=== PATIENT | female | born 1940 | race Caucasian/White ===

== ENCOUNTER → 2024-03-26 09:24 | Outpatient (REF) | payer OTHER, BC, MEDICARE, SELFPAY | LOC: RCS 09:24 | PROVIDERS: ATTENDING PHYSICIAN Internal Medicine Cardiovascular Disease; FAMILY PHYSICIAN Student in an Organized Health Care Education/Training Program | DX: I35.0 Nonrheumatic aortic (valve) stenosis (principal) | CPT/HCPCS: 93306 ==

== ENCOUNTER → 2024-03-31 09:00 | Outpatient (REF) | payer OTHER, SELFPAY ==
[2024-03-31 14:01] LABS: % Basophils 0.9 % (0-2); % Eosinophils 2.9 % (0-6); % Immature Granulocytes 0.5 % (0-0.5); % Lymphocytes 29.4 % (20.5-51.1); % Monocytes 9.4 % (1.7-9.3); % Neutrophils 56.9 % (42.2-75.2); Absolute Basophils 0.1 10^3/uL (0-0.2); Absolute Eosinophils 0.2 10^3/uL (0-0.7); Absolute Lymphocytes 1.9 10^3/uL (1.2-3.4); Absolute Monocytes 0.6 10^3/uL (0.1-0.6); Absolute Neutrophils 3.7 10^3/uL (1.4-6.5); Hematocrit 30.2 % (37.0-47.0); Hemoglobin 9.7 g/dL (12.0-16.0); Mean Corp Hgb Conc. 32.1 g/dL (33.0-37.0); Mean Corpuscular Hgb 31.6 pg (27.0-31.0); Mean Corpuscular Volume 98.4 fL (81.0-99.0); Mean Platelet Volume 10.8 fL (7.4-10.4); Nucleated Red Blood Cells % 0 %; Platelet Count 258 10^3/uL (130-400); Red Blood Cell Count 3.07 10^6/uL (4.20-5.40); Red Cell Dist. Width 15.8 % (11.5-14.5); White Blood Cell Count 6.5 10^3/uL (4.8-10.8)
[2024-03-31 14:26] LABS: ALT (SGPT) 26 U/L (0-35); AST (SGOT) 30 U/L (14-36); Albumin 4.2 g/dl (3.5-5.0); Alkaline Phosphatase 81 U/L (38-126); Blood Urea Nitrogen 22 mg/dl (7-17); Calcium 9.5 mg/dl (8.4-10.2); Carbon Dioxide 22 mmol/L (22-30); Chloride 111 mmol/L (98-107); Glucose 128 mg/dl (70-99); Potassium 5.2 mmol/L (3.5-5.1); Sodium 146 mmol/L (135-145); Total Bilirubin 0.2 mg/dl (0.2-1.3); eGFR 36.87
== END ==
LOC: SDSPAT 09:00
PROVIDERS: ATTENDING PHYSICIAN Internal Medicine Cardiovascular Disease; FAMILY PHYSICIAN Student in an Organized Health Care Education/Training Program
DX: Z01.810 Encounter for preprocedural cardiovascular examination (principal)
CPT/HCPCS: 36415; 80053; 85025; 93005

== ENCOUNTER 2024-04-08 09:09 | Day surgery (SDC) | payer OTHER, MEDICARE, BC, SELFPAY ==
[2024-03-31 13:23] VITALS: BMI 24.9
[2024-04-08] VITALS (23 sets, daily range): BP systolic 106–151; BP diastolic 58–95
--- NOTE | 2024-04-08 09:50 | CONSULT.STRU ---
Consultation
-
Date/Time Consultation Requested: 04/08/2024
Date/Time Consultation Performed: 04/08/2024
Requesting Provider: Christiano Dunlap DO
Performing Provider: MIKAEL Hernández
Reason for Consultation: /TAVR
Patient History
Physicians
Family Physician: Mckenna Porter MD
Outpatient Four Slide Machine Operator: Micheal Mixon DO
Primary Four Slide Machine Operator: Micheal Mixon DO
History of Present Illness
Ms. Mota is a very pleasant 83 yof that presents with severe symptomatic aortic stenosis associated with GARAY. Her echocardiogram from 03/26/2024 is notable for EF 55-60%, AV P/M 92/52, JENNIFER 0.6, pk jose c: 4.90, no AI, MAC with mild to moderate MR MV
P/M 13/6, MVA 1.31, PAP 37. Discussed the pathophysiology and treatment options of including SAVR and TAVR. Explained the TAVR evaluation process comprising of staged CT scan, CT surgical consult, dental clearance and a heart team discussion.
Appointments, prescriptions, contact information and TAVR booklet given to patient. Allowed for and answered questions at bedside.
Past Medical History
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
Past Surgical History
Past Surgical History: Orthopedic ((L) ankle surgery) and Other (cataract removal, (R) breast lumpectomy)
Dental History
Targen--Pt will need to make an appointment
Family History
Mother: Cause of (97)
Father: N/A
Social History
Alcohol: None
Drug: None
Tobacco: Non-Smoker
Living: Alone
Employment: Retired
Allergies
Allergy/AdvReac Type Severity Reaction Status Date / Time
cephalexin monohydrate Allergy Severe Hives Verified 04/08/24 09:48
[From Keflex]
clindamycin Allergy Severe Hives Verified 04/08/24 09:49
levofloxacin [From Levaquin] Allergy Severe Hives Verified 04/08/24 09:48
sulfamethoxazole Allergy Severe Hives Verified 04/08/24 09:50
[From Bactrim]
trimethoprim [From Bactrim] Allergy Severe Hives Verified 04/08/24 09:50
Home Medications
�Medication �Instructions �Recorded �Confirmed �Type
atorvastatin 80 mg tablet 80 mg PO DAILY 03/30/24 04/08/24 History
biotin 1,000 mcg chewable tablet 1,000 mcg PO DAILY 03/30/24 04/08/24 History
cholecalciferol (vitamin D3) 125 125 mcg PO DAILY 03/30/24 04/08/24 History
mcg (5,000 unit) tablet (Vitamin
D3)
venlafaxine 75 mg tablet 75 mg PO DAILY 03/30/24 04/08/24 History
aspirin 81 mg tablet 81 mg PO DAILY 04/08/24 04/08/24 History
esomeprazole magnesium 20 mg 20 mg PO DAILY 04/08/24 04/08/24 History
tablet,delayed release (Nexium
24HR)
STS%
STS %: 6.22
Review of Systems
-
History Source: Patient
General: Reports Fatigue
HEENT: Reports No Symptoms
Respiratory: Reports GARAY
Cardiac: Reports No Symptoms
Abdomen/GI: Reports No Symptoms
: Reports No Symptoms
Musculoskeletal: Reports No Symptoms
Skin: Reports No Symptoms
Neurological: Reports No Symptoms
Vascular: Reports No Symptoms
Physical Exam
Vital Signs
Actual Weight 59.7 kg 03/31/24 13:23
Body Mass Index (BMI) 24.9 03/31/24 13:23
Labs
03/31/2024:
HH: 9.7/30.2
plt: 258K
BUN/Creatinine: 22/1.4
GFR 36.87
Diagnostic Studies
ECHOCARDIOGRAM 03/26/2024:
CONCLUSIONS
Normal BiV size and function.
Severe, high gradient aortic stenosis with possible LCC/NCC fusion.
Thickened mitral valve leaflets with mild-moderate MR and mild-moderate MS.
Mild TR; PASP 37 mmHg.
Normal aortic root size.
No prior study available for comparison.
Aortic Valve
Calcified aortic valve. Possible LCC/NCC fusion. Thickened aortic valve with
restricted leaflet motion. Severe aortic stenosis. Peak/mean gradients across
the aortic valve are 92/52 mmHg. JENNIFER 0.6. No aortic regurgitation.
CARDIAC CATHETERIZATION 04/08/2024:
CONCLUSIONS:
1. Right dominant circulation with a borderline 50-60% proximal RCA lesion (IFR = 0.90).
2. Severely elevated filling pressures (PCWP = 27 mmHg at 59.4 kg).
3. Preserved systolic function (cardiac index = 2.78 L/min/m�).
4. Mild postcapillary pulmonary hypertension (mean PA = 27 mmHg, cardiac output = 4.39 L/min, PVR = 2.73 Ac units).
5. Severe/critical aortic valve stenosis on echocardiography.
6. Severe, calcified right common femoral atherosclerosis with significant stenosis.
RECOMMENDATIONS:
1. Expectant management after cardiac catheterization via right common femoral approach.
2. Limited weight bearing for one week.
3. Continue TAVR workup.
4. Given the patient's light symptom burden, we will defer any medication adjustment that may impact her kidney function given her upcoming CT scan.
5. We can readdress diuretic dosing after her aortic valve has been addressed.
6. Continue high-dose, high potency statin for ASCVD.
7. Stable for outpatient follow-up.
Procedure Type:�Isolated AVR
Perioperative Outcome Estimate %
Operative Mortality 6.22%
Morbidity & Mortality 13.1%
Stroke 2.62%
Renal Failure 2.31%
Reoperation 3.45%
Prolonged Ventilation 7.43%
Deep Sternal Wound Infection 0.036%
Long Hospital Stay (>14 days) 8.7%
Short Hospital Stay (<6 days)* 27.3%
Exam
General: Well Developed, Well Nourished and No Apparent Distress
HEENT: Normocephalic and Moist Mucous Membranes
Respiratory: Clear (anteriorly)
Cardiac: Murmur (V/Vi DYLLAN)
GI: Soft and Non Tender
Rectal: Deferred by Provider
Skin: Warm and Dry
Neuro: Awake, Oriented and AO x 3
Psych: Calm
Assessment / Plan
-
Aortic Stenosis
Continue TAVR evaluation
Trend creatinine after contrast (Rx given)
Stage CT scan d/t CKD IV (chest CT 04/22 w/ OID)
CT surgical consult (MPT 04/14)
Frailty testing and KCCQ12 at consult
Continue aspirin
Dental clearance
Heart team discussion
Data Reviewed
-
EKG: Tracing Personally Visualized and interpreted (NSR)
Invoice Checker: Report Reviewed by me and Discussed with Physician
Echo: Report Reviewed by me and Discussed with Physician
Labs: Labs Reviewed by me
Old Records: Reviewed (Office notes from Drs. Dunlap and Oral)
Total Time Spent with Patient (in minutes): 45
[2024-04-08 13:38] LABS: ACT-LR - POC 345 Seconds (116-155)
--- NOTE | 2024-04-08 14:16 | ITS.CL.CATH ---
[facility] - Catheterization
Cardiac Catheterization
Procedure Report:
CARDIAC CATHETERIZATION REPORT
Date of Procedure: 04/08/2024
Referring: Micheal Mixon D.O.
Indication: Critical aortic valve stenosis.
PROCEDURE:
1. Right heart catheterization.
2. Coronary angiography.
3. Iliofemoral peripheral angiography.
4. IFR of the proximal RCA.
ACCESS:
6 Lebanese right common femoral artery using a modified Seldinger technique with a micropuncture kit under ultrasound guidance.
5 Lebanese right common femoral vein using a modified Seldinger technique with a micropuncture kit under ultrasound guidance.
CATHETERS:
1. 5 Lebanese balloon wedge.
2. 5 Lebanese JL 4.
3. 5 Lebanese JR4.
4. 5 Lebanese straight pigtail.
5. 6 Lebanese JR4 guiding catheter.
HEMODYNAMIC DATA
Weight (kg): 59.4
AO (s/d/x mmHg): 156/83/116
LV (s/x mmHg): Not obtained.
PCWP (a/v/x mmHg): 36/43/27
PA (s/d/x mmHg): 57/30/39
RV (s/x mmHg): 57/15
RA (a/v/x mmHg): 23/21/19
SVC SvO2 (%): 67.1
PA SvO2 (%): 68.2
SaO2 (%): 98.6
Hbg (g/dL): 8.3
CO (L/min): 4.39
CI (L/min/m2): 2.78
TPG (mmHg): 12
PVR (Ca Units): 2.73
SVR (dynes*seconds*cm^-5): 1768
AVO2 Diff (Volume %): 3.43
AV gradient (x, mmHg): Not obtained.
AV area (cm2): Not obtained.
LEFT VENTRICULOGRAPHY: Not performed.
CORONARY ANGIOGRAPHY
Dominance: Right.
Left Main: Normal size, trifurcating vessel. There is no coronary artery disease.
LAD: Normal size vessel giving rise to 2 small diagonals. There is a dense, external calcification in the proximal LAD. There is a 20% lesion in the mid LAD, spanning the origin of the second diagonal.
Ramus: Normal size vessel which bifurcates into an upper and lower branch, supplying the majority of the anterolateral and lateral wall. There is no coronary artery disease.
Circumflex: Small size, nondominant vessel giving rise to 1 small obtuse marginal. There is no significant coronary artery disease.
RCA: Large size, dominant vessel. There is a 50-60% lesion in the proximal vessel.
LOWER EXTREMITY ANGIOGRAPHY
Left Common Iliac Artery: Normal.
Left External Iliac Artery: Normal.
Left Common Femoral Artery: Normal.
Left Superficial Femoral Artery: Normal to the level of the upper femur.
Left Profunda Femoris: Normal to the level of the upper femur.
Right Common Iliac Artery: Normal.
Right External Iliac Artery: Normal.
Right Common Femoral Artery: Severely diseased with multiple calcified nodules in the mid and distal common femoral artery, leading into the bifurcation.
Right Superficial Femoral Artery: Normal to the level of the upper femur.
Right Profunda Femoris: Normal to the level of the upper femur.
INTERVENTIONS
1. Successful IFR of the 50 to 60% proximal RCA lesion, demonstrating borderline disease (IFR = 0.90).
Narrative:
The decision was made to perform physiologic testing. The diagnostic catheter was removed over a wire and exchanged for a(n) 6 Lebanese JR4 guiding catheter. The guiding catheter was advanced into the ascending aorta and seated in the right coronary
artery. Additional heparin was given to obtain an ACT greater than 250 seconds. An iFR wire was zeroed outside of the body, then inserted into the guiding sheath. The wire was advanced and the transducer was normalized just outside of the guiding
catheter tip. The wire was advanced into the mid RCA, beyond the 50-60% proximal RCA lesion. Three iFR measurements were taken. The lesion was determined to be borderline occlusive (0.90). Given her relatively light symptom burden combined with
anemia, the decision was made to defer any further action (such as FFR) and manage her coronary artery disease medically.
Closure Device: Manual pressure for the right common femoral artery and vein.
Radiation dose (mGy): 515.12
DAP (cm2.Gy): 40.8025
Fluoroscopy time (minutes): 7.2
Sedation time (minutes): 21
CONCLUSIONS:
1. Right dominant circulation with a borderline 50-60% proximal RCA lesion (IFR = 0.90).
2. Severely elevated filling pressures (PCWP = 27 mmHg at 59.4 kg).
3. Preserved systolic function (cardiac index = 2.78 L/min/m�).
4. Mild postcapillary pulmonary hypertension (mean PA = 27 mmHg, cardiac output = 4.39 L/min, PVR = 2.73 Ac units).
5. Severe/critical aortic valve stenosis on echocardiography.
6. Severe, calcified right common femoral atherosclerosis with significant stenosis.
RECOMMENDATIONS:
1. Expectant management after cardiac catheterization via right common femoral approach.
2. Limited weight bearing for one week.
3. Continue TAVR workup.
4. Given the patient's light symptom burden, we will defer any medication adjustment that may impact her kidney function given her upcoming CT scan.
5. We can readdress diuretic dosing after her aortic valve has been addressed.
6. Continue high-dose, high potency statin for ASCVD.
7. Stable for outpatient follow-up.
Copy to: Micheal Mixon D.O., Mckenna Porter M.D.
Christiano Dunlap DO, FACC, FACP
[2024-04-08 15:00] LABS: ACT-LR - POC 200 Seconds (116-155)
[2024-04-08 15:39] LABS: ACT-LR - POC 189 Seconds (116-155)
--- NOTE | 2024-04-08 18:07 | PTCARENOTE ---
Rec'd pt from [facility]. Tele- SR. R groin w/ old bloody drg on site. No hematoma noted. Activity restrictions reviewed w/ pt. Verbalizes understanding. VSS. Currently in bed; call lam w/in reach.
[2024-04-08 22:36] LABS: Glucose - Point of Care 80 mg/dl (70-99)
--- NOTE | 2024-04-09 01:50 | PTCARENOTE ---
Assumed care of the patient @ 1900 SR on monitor rt groin cath site dressing changed . clean dry and intact no hematoma. VSS . Denies pain. 1 person assist to bedside commode. Call fritz within reach hourly rounding done.
[2024-04-09 04:07] VITALS: BP 129/69
[2024-04-09 05:13] LABS: Blood Urea Nitrogen 27 mg/dl (7-17); Carbon Dioxide 22 mmol/L (22-30); Chloride 112 mmol/L (98-107); Estimated Creatinine Clearance 24 ml/min; Glucose 88 mg/dl (70-99); Potassium 4.7 mmol/L (3.5-5.1); Sodium 144 mmol/L (135-145)
[2024-04-09 06:21] LABS: Hematocrit 27.7 % (37.0-47.0); Hemoglobin 8.8 g/dL (12.0-16.0); Mean Corp Hgb Conc. 31.8 g/dL (33.0-37.0); Mean Corpuscular Hgb 31.1 pg (27.0-31.0); Mean Corpuscular Volume 97.9 fL (81.0-99.0); Mean Platelet Volume 10.9 fL (7.4-10.4); Platelet Count 234 10^3/uL (130-400); Red Blood Cell Count 2.83 10^6/uL (4.20-5.40); Red Cell Dist. Width 16.7 % (11.5-14.5); White Blood Cell Count 8.2 10^3/uL (4.8-10.8)
[2024-04-09 07:16] VITALS: BP 116/84
[2024-04-09] MEDS: PROTONIX 40 MG PO (07:32)
[2024-04-09] MEDS: LIPITOR 80 MG PO (07:32)
[2024-04-09] MEDS: EFFEXOR 75 MG PO (07:32)
[2024-04-09] MEDS: FEOSOL 325 MG PO (07:32)
[2024-04-09] MEDS: ASPIR LOW (ENTERIC COATED) 81 MG PO (07:32)
[2024-04-09 07:38] LABS: Glucose - Point of Care 113 mg/dl (70-99)
[2024-04-09 08:38] LABS: Glycohemoglobin (HgbA1c) 6.3 % (4.0-5.6)
--- NOTE | 2024-04-09 08:38 | W.PN.CARDCBS ---
Addendum entered and electronically signed by Christiano Dunlap DO 04/09/24 11:45:
Attestation: I have seen and examined the patient. I can confirm Ms. Vo's findings and I agree with her assessment and plan as documented.
No acute events.
The patient was hospitalized overnight after a late groin sheath pull after an elective cardiac catheterization for TAVR evaluation.
The patient did suffer some oozing after the groin pull, requiring an overnight observation.
No further blood loss overnight.
She has no subjective cardiovascular complaints this morning.
On exam, she is alert awake and oriented x 3.
Heart is regular rhythm with a normal rate. There is a 3/6 systolic ejection murmur heard best at the left upper sternal border.
Lungs are clear to auscultation bilaterally.
There is trace peripheral edema.
We will continue TAVR workup including CT chest and appointment with CT surgery.
We are deferring diuresis at this time to avoid any renal insult prior to her CT scan.
She is stable for outpatient follow-up.
Original Note:
Today's Communication / Plan
-
stable for d/c home
continue outpt TAVR w/u
Impression / Plan
-
PCP: Dr. Porter
CDY: Micheal Mixon DO
Impression/Plan:
#Severe - post cath yesterday with mild CAD IFR borderline RCA stenosis, med management
R fem site c/d/i, soft, mildly tender, Hbg 9.7->8.8
Elevated filling pressures PCWP 27mmHg, but with given the patient's light symptom burden, we will defer any medication adjustment that may impact her kidney function given her upcoming CT scan.
We can readdress diuretic dosing after her aortic valve has been addressed.
continue TAVR w/u outpt
#CAD - continue ASA 81mg and Atorvastatin 80mg
#CKD3b - Cr 1.3 post cath, will trend
#HTN
#HLD
#TIA
#DM2
#h/o GIB on ferrous sulfate
#Macular degeneration
CONCLUSIONS:
1. Right dominant circulation with a borderline 50-60% proximal RCA lesion (IFR = 0.90).
2. Severely elevated filling pressures (PCWP = 27 mmHg at 59.4 kg).
3. Preserved systolic function (cardiac index = 2.78 L/min/m�).
4. Mild postcapillary pulmonary hypertension (mean PA = 27 mmHg, cardiac output = 4.39 L/min, PVR = 2.73 Ac units).
5. Severe/critical aortic valve stenosis on echocardiography.
6. Severe, calcified right common femoral atherosclerosis with significant stenosis.
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
Subjective
Date of Service: April 09, 2024
denies cp, sob
Objective
Labs:
04/09/24 04:15
04/09/24 04:15
Labs
Hgb 8.8 g/dL (12.0-16.0) L 04/09/24 04:15
Hct 27.7 % (37.0-47.0) L 04/09/24 04:15
Plt Count 234 10^3/uL (130-400) 04/09/24 04:15
Sodium 144 mmol/L (135-145) 04/09/24 04:15
Potassium 4.7 mmol/L (3.5-5.1) 04/09/24 04:15
BUN 27 mg/dl (7-17) H 04/09/24 04:15
Creatinine 1.3 mg/dL (0.6-1.0) H 04/09/24 04:15
Glucose 88 mg/dl (70-99) 04/09/24 04:15
Vital Signs and I&O:
Vital Signs
Temp Pulse Resp BP Pulse Ox
97.9 F 76 18 129/69 93
04/09/24 07:14 04/09/24 04:07 04/09/24 07:14 04/09/24 04:07 04/09/24 07:14
Vital Signs
Temp Pulse Resp BP Pulse Ox
97.9 F 76 18 129/69 93
04/09/24 07:14 04/09/24 04:07 04/09/24 07:14 04/09/24 04:07 04/09/24 07:14
Intake & Output
04/07/24 04/08/24 04/09/24 04/10/24
06:59 06:59 06:59 06:59
Output Total 800 / 800
Balance -800 / -800
Physical Exam
Physical Exam
NAD< AOx3
S1, S2, / DYLLAN
CTAB, non labored
SNTND bsx4
R fem site c/d/i soft, mildly tender
[2024-04-09 09:02] VITALS: BMI 25.0
[2024-04-09 11:24] VITALS: BP 132/71
[2024-04-09 11:58] LABS: Glucose - Point of Care 131 mg/dl (70-99)
--- NOTE | 2024-04-09 13:06 | PTCARENOTE ---
Tele and IV removed. Discharge instructions reviewed w/ pt. Verbalizes understanding. Escorted via WC and staff assist. Discharged to home.
--- NOTE | 2024-04-09 14:32 | CM ---
CM following for DC planning needs.
Met w patient at bedside to complete initial assessment.
Pt. resides alone in a private, split level home. There are approx. 6 steps between levels.
Pt. is functionally indep. at baseline w/ ADLs and mobility. She has a SPC, which she does not use.
Pt. has RX plan and uses [facility] in [facility] for prescription needs.
Anticipated DC plan is for home without needs.
Pt. plans to return in several weeks for TAVR procedure.
--- NOTE | 2024-04-09 14:50 | W.DS.TRANS ---
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
-
Discharge Instructions:
Discharge Diagnosis/Procedures Cardiac cath
Diet Low Cholesterol
Driving Restrictions No driving for 24 hours
Blood Work PLEASE GET YOUR LAB WORK NEXT WEEK (Saturday
OR MONDAY 04/16) PLEASE FAX RESULTS TO [phone]
[phone] [facility].
Others Tests THE FIRST PORTION OF YOUR CT SCAN IS SCHEDULED
FOR 04/22/2024 @ 9:30. YOU WILL GO THE
OUTPATIENT INFUSION DEPARTMENT AT 8:30 FOR IV
HYDRATION BEFORE AND AFTER YOUR CT SCAN. SEE
ATTACHED INSTRUCTIONS.
NOTHING TO EAT OR DRINK 3 HOURS BEFORE YOUR
SCHEDULED CT SCAN. PLEASE BRING A LIST OF YOUR
MEDICATIONS. YOU MAY TAKE YOUR MORNING
MEDICATIONS WITH SIPS OF WATER BEFORE COMING IN.
YOU WILL NEED DENTAL CLEARANCE PRIOR TO YOUR
VALVE REPLACEMENT
Instructions:
Stand-Alone Forms: DC Instructions- Cath/EP Lab
Changes to Home Medications: No
Discharge Medications:
DC Medications w/original date entered in [employer] [facility]
atorvastatin 80 mg tablet 80 mg PO DAILY 03/30/24
biotin 1,000 mcg chewable tablet 1,000 mcg PO DAILY 03/30/24
cholecalciferol (vitamin D3) 125 mcg (5,000 unit) tablet (Vitamin D3) 125 mcg PO DAILY 03/30/24
venlafaxine 75 mg tablet 75 mg PO DAILY 03/30/24
ascorbic acid (vitamin C) 500 mg capsule,extended release 500 mg PO DAILY 04/08/24
aspirin 81 mg tablet 81 mg PO DAILY 04/08/24
esomeprazole magnesium 20 mg tablet,delayed release (Nexium 24HR) 20 mg PO DAILY 04/08/24
ferrous sulfate 325 mg (65 mg iron) tablet (Iron (ferrous sulfate)) 325 mg PO DAILY 04/08/24
potassium 99 mg tablet 99 mg PO DAILY 04/08/24
vit C 250 mg-vit E 90 mg-zinc 40 mg-copper 1 [id number] capsule (PreserVision AREDS-2) 2 tab PO DAILY 04/08/24
Home Medication Changes
Pending Results: No
== END 2024-04-09 13:07 | disposition home or self-care (01) ==
LOC: CATH 09:09
PROVIDERS: Nurse Practitioner Adult Health; ATTENDING PHYSICIAN Internal Medicine Cardiovascular Disease; FAMILY PHYSICIAN Nurse Practitioner Family
DX: I35.0 Nonrheumatic aortic (valve) stenosis (principal); I25.10 Atherosclerotic heart disease of native coronary artery without angina pectoris; I12.9 Hypertensive chronic kidney disease with stage 1 through stage 4 chronic kidney disease, or unspecified chronic kidney disease; K21.9 Gastro-esophageal reflux disease without esophagitis; D64.9 Anemia, unspecified; F41.9 Anxiety disorder, unspecified; F32.A Depression, unspecified; E11.22 Type 2 diabetes mellitus with diabetic chronic kidney disease; N18.9 Chronic kidney disease, unspecified; H35.30 Unspecified macular degeneration; M19.90 Unspecified osteoarthritis, unspecified site; Z86.73 Personal history of transient ischemic attack (TIA), and cerebral infarction without residual deficits; Z79.899 Other long term (current) drug therapy; Z79.82 Long term (current) use of aspirin; Z79.84 Long term (current) use of oral hypoglycemic drugs; I27.29 Other secondary pulmonary hypertension; I70.201 Unspecified atherosclerosis of native arteries of extremities, right leg; E78.49 Other hyperlipidemia; Z88.1 Allergy status to other antibiotic agents; Z88.2 Allergy status to sulfonamides; N18.4 Chronic kidney disease, stage 4 (severe); Z90.49 Acquired absence of other specified parts of digestive tract
CPT/HCPCS: 93799; G0278; 80048; 82962; 83036; 85027; 85347; 93456; C1769; C1894; Q9967

== ENCOUNTER 2024-04-22 07:40 | Outpatient (RCR) | payer OTHER, SELFPAY ==
[2024-04-22 07:54] VITALS: BP 106/77
[2024-04-22] MEDS: NSS 500 IV (08:10)
== END 2024-05-05 23:59 | disposition home or self-care (01) ==
LOC: OID 07:40
PROVIDERS: ATTENDING PHYSICIAN Nurse Practitioner Acute Care
DX: I35.0 Nonrheumatic aortic (valve) stenosis (principal); N18.4 Chronic kidney disease, stage 4 (severe)
CPT/HCPCS: 96360; 96361

== ENCOUNTER → 2024-04-22 08:28 | Outpatient (REF) | payer OTHER, SELFPAY | LOC: RAD 08:28 | PROVIDERS: ATTENDING PHYSICIAN Nurse Practitioner Acute Care; FAMILY PHYSICIAN Student in an Organized Health Care Education/Training Program | DX: I35.0 Nonrheumatic aortic (valve) stenosis (principal) | CPT/HCPCS: 75572; Q9967 ==

== ENCOUNTER → 2024-06-05 14:56 | Outpatient (REF) | payer OTHER, SELFPAY | LOC: RAD 14:56 | PROVIDERS: ATTENDING PHYSICIAN Nurse Practitioner Adult Health | DX: Z87.19 Personal history of other diseases of the digestive system (principal); I35.0 Nonrheumatic aortic (valve) stenosis; K92.2 Gastrointestinal hemorrhage, unspecified | CPT/HCPCS: 74176 ==

== ENCOUNTER 2024-07-02 07:47 | Inpatient (IN) | payer OTHER, BC, SELFPAY ==
[2024-06-25 12:11] VITALS: BMI 23.9
[2024-06-25 13:12] LABS: % Basophils 0.8 % (0-2); % Eosinophils 3.4 % (0-6); % Immature Granulocytes 0.2 % (0-0.5); % Monocytes 9.2 % (1.7-9.3); % Neutrophils 62.4 % (42.2-75.2); Absolute Eosinophils 0.2 10^3/uL (0-0.7); Absolute Lymphocytes 1.3 10^3/uL (1.2-3.4); Absolute Monocytes 0.5 10^3/uL (0.1-0.6); Absolute Neutrophils 3.3 10^3/uL (1.4-6.5); Hematocrit 34.5 % (37.0-47.0); Hemoglobin 10.6 g/dL (12.0-16.0); Mean Corp Hgb Conc. 30.7 g/dL (33.0-37.0); Mean Corpuscular Volume 97.7 fL (81.0-99.0); Mean Platelet Volume 10.8 fL (7.4-10.4); Nucleated Red Blood Cells % 0 %; Platelet Count 200 10^3/uL (130-400); Red Blood Cell Count 3.53 10^6/uL (4.20-5.40); Red Cell Dist. Width 17.8 % (11.5-14.5); White Blood Cell Count 5.3 10^3/uL (4.8-10.8)
[2024-06-25 13:13] LABS: Urine Albumin 2+ (Neg - Trace); Urine Bilirubin Negative (Negative); Urine Character Slightly Cloudy (Clear); Urine Color Yellow; Urine Glucose Negative (Negative); Urine Ketone Negative (Negative); Urine Leukocyte 3+ (Negative); Urine Nitrite Negative (Negative); Urine Occult Blood 1+ (Negative); Urine Urobilinogen Negative (Neg - 1+)
[2024-06-25 13:21] LABS: Urine Bacteria Few (Negative); Urine Squamous Cell >30 /LPF (Few)
[2024-06-25 13:22] LABS: Urine Red Blood Cell 0-2 /HPF (0-2)
[2024-06-25 13:24] LABS: INR 1.08; PT 14.5 Sec (11.4-14.6)
[2024-06-25 13:28] LABS: ALT (SGPT) 23 U/L (0-35); AST (SGOT) 28 U/L (14-36); Albumin 4.2 g/dl (3.5-5.0); Alkaline Phosphatase 82 U/L (38-126); Blood Urea Nitrogen 21 mg/dl (7-17); Calcium 9.4 mg/dl (8.4-10.2); Carbon Dioxide 25 mmol/L (22-30); Chloride 109 mmol/L (98-107); Direct Bilirubin 0.2 mg/dl (0.0-0.4); Estimated Creatinine Clearance 22 ml/min; Glucose 132 mg/dl (70-99); Potassium 4.6 mmol/L (3.5-5.1); Sodium 145 mmol/L (135-145); Total Bilirubin 0.5 mg/dl (0.2-1.3); Total Protein 7.2 g/dl (6.3-8.2); eGFR 36.87
[2024-06-25 13:35] LABS: NT-proBNP 1150 pg/ml
--- NOTE | 2024-06-25 14:13 | CM ---
Met with Mrs. Mota and her daughter in [facility]. She states prior to admission she resides alone in a spilt-level home with six steps to enter. She states she has seven steps to get to bedroom/full bathroom and seven steps to get to her powder room.
She states prior to admission she was independent with ambulation and adls. She states she does not have any DME in the home. She states she has a prescription plan. Her daughter has offered for her to stay with her for a few days when she goes
home. Mrs. Mota is not sure she will want to do that. The discharge plan is to go home with her daughter for a few days and a home visit with the Transitional Care Nurse versus return to her home and a home visit by the Transitional Care Nurse
when medically stable.
We reviewed pre-op and post-op routines. We reviewed the shower instructions. Shehas the soap, written instructions and the TAVR Educational Booklet. We reviewed restrictions including driving and lifting restrictions. We discussed a home visit by
the Transitional Care Nurse. She is agreeable to a home visit. The plan is for TAVR on 07/02/24.
--- NOTE | 2024-06-25 14:27 | HPS.HSE ---
Family Physician
-
Family Physician: ALEXANDRA BORGES, DO
Chief Complaint
-
GARAY, fatigue
preTAVR evaluation
History of Present Illness
Ms. Mota is a very pleasant 83 yof that presents with severe symptomatic aortic stenosis associated with GARAY. Her echocardiogram from 03/26/2024 is notable for EF 55-60%, AV P/M 92/52, JENNIFER 0.6, pk jose c: 4.90, no AI, MAC with mild to moderate MR MV
P/M 13/6, MVA 1.31, PAP 37. Cardiac catheterization from demonstrated right dominant circulation with a borderline 50-60% proximal RCA lesion (IFR = 0.90),.severely elevated filling pressures (PCWP = 27 mmHg at 59.4 kg), preserved
systolic function (cardiac index = 2.78 L/min/m�). mild postcapillary pulmonary hypertension (mean PA = 27 mmHg, cardiac output = 4.39 L/min, PVR = 2.73 Ac units), severe, calcified right common femoral atherosclerosis with significant stenosis.
Discussed the pathophysiology and treatment options of including SAVR and TAVR. Patient's TAVR evaluation was delayed due to a recent hospitalization for a GIB. She has been evaluated and cleared for TAVR from GI and Hgb has remained stable.
Assessed patient in preadmission testing and confirmed medication list. Added 81 mg aspirin PO daily including the morning of TAVR. She will arrive to the [facility] at 0730 on 07/02. Discussed the risks of the procedure as discussed in consult
with Dr. Stallworth including ppm, stroke, and vascular injury. Patient states she has had a head cold for several days with a NPC, she denies fever. Informed patient we would call her on Thursday 06/29 to see how she is feeling and instructed if she feels
worse or develops fever, she should contact PCP or go to the ED. Allowed for and answered questions.
Medical History
Past Medical History
Past Medical History: Reports CAD, HTN, NIDDM, Valvular Disease (Aortic stenosis), Psychiatric (depression, anxiety) and Other (hypoercalcemia, diverticulosis, hiatal hernia, TIA, macular degeneration, HLD, anemia, CKD 3-4, GIB)
Past Surgical History: Reports Cholecystectomy, Orthopedic (ankle ORIF, left wrist fx) and Other (cataract removal, (R) breast lumpectomy, diverticular bleed s/p resection)
Social History
Tobacco: Non-smoker
Alcohol: None
Drug: None
Personal: ()
Employment: Retired
Family History
Family History: Not pertinent
Allergies / Home Medications
Allergies reflects when Allergies were last updated in [employer].
Keflex: hives
Levaquin: hives
Clindamycin HCl: hives
Bactrim: hives
Ciprofloxacin: hives
gerstein: ?
Home Medications with original date entered in [employer]
Aspirin Adult Low Dose(Aspirin) 81 MG Tablet Delayed Release 1 tablet Orally Once a day
Atorvastatin Calcium 80 MG Tablet 1 tablet Orally Once a day
Biotin 1000 MCG Tablet Chewable as directed Orally
Ferrous Sulfate 325 (65 Fe) MG Tablet 1 tablet Orally daily
NexIUM 24HR(Esomeprazole Magnesium) 20 MG Capsule Delayed Release 1 capsule 1/2 to 1 hour before morning meal Orally Once a day , Notes to Pharmacist: esomeprazole mag
Potassium 99 MG Tablet 1 tablet Orally Once a day
PreserVision AREDS 2(Multiple Vitamins-Minerals) - Capsule as directed Orally , Notes to Pharmacist: 2 tabs daily
Venlafaxine HCl 75 MG Tablet 1 tablet with food Orally Once a day
Vitamin C 500 MG Capsule as directed Orally
Vitamin D3 125 MCG (5000 UT) Capsule as directed Orally
Allergy/Medication List:
Keflex: hives
Levaquin: hives
Clindamycin HCl: hives
Bactrim: hives
Ciprofloxacin: hives
gerstein: ?
Review of Systems
-
History Source: Patient
Constitutional: Reports Fatigue
EENT: Reports No Symptoms
Respiratory: Reports Cough (NPC)
Cardiac: Reports No Symptoms
Abdomen/GI: Reports No Symptoms
: Reports No Symptoms
Musculoskeletal: Reports No Symptoms
Skin: Reports No Symptoms
Neurological: Reports No Symptoms
Psych: Reports No Symptoms
Physical Exam
Physical Exam
General: Well Developed and Well Nourished
HEENT: Atraumatic
Respiratory: Clear
Cardiac: Irregular Rhythm and Murmur (IV/)
Breast: Deferred by me
GI: Soft and Non Tender
Rectal: Deferred by Provider
Genito-urinary: Deferred by me
Skin: Warm and Dry
Neuro: Awake, Alert, Oriented and AO x 3
Psych: Calm
Laboratory Results
-
06/25/24 12:37
06/25/24 12:37
Laboratory Results
PT 14.5 Sec (11.4-14.6) 06/25/24 12:37
INR 1.08 06/25/24 12:37
APTT 26.0 Sec (23.4-35.0) 06/25/24 12:37
Total Bilirubin 0.5 mg/dl (0.2-1.3) 06/25/24 12:37
AST 28 U/L (14-36) 06/25/24 12:37
ALT 23 U/L (0-35) 06/25/24 12:37
Alkaline Phosphatase 82 U/L (38-126) 06/25/24 12:37
Data Reviewed
-
Diagnostic Radiology: Report Reviewed by me
CT Scan: Report Reviewed by me and Discussed with Physician (Reviewed TAVR CT scan with the heart team)
Medical Tests (Nuc Med, Echo, EKG etc): Report Reviewed by me and Discussed with Physician (echocardiogram and cardiac catheterization reviewed with the heart team)
Lab Data: Labs Reviewed by me
Old Records: Reviewed (Dr. Stallworth's office note)
Impression/Plan
-
IMPRESSION/PLAN:
Aortic Stenosis
TF TAVR planned utilizing a 26mm Fx+ with Drs. Dunlap and Karyn
81 mg aspirin restarted and instructed to continue including morning of TAVR
POD #1/#30 Echocardiogram
Cardiac rehab consult.
[2024-06-25 15:17] LABS: Glycohemoglobin (HgbA1c) 6.1 % (4.0-5.6)
[2024-07-02] VITALS (17 sets, daily range): BP systolic 91–148; BP diastolic 39–86; BMI 24.0
[2024-07-02 08:08] LABS: Glucose - Point of Care 96 mg/dl (70-99)
--- NOTE | 2024-07-02 08:30 | CM ---
Reviewed chart. Mrs. Mota is in the operating room today. Prior to admission she resides alone in [place]ilt level home with six steps to enter. She has seven steps to get to ner bedroom/full bathroom and seven steps down to get to her powder room.
Prior to admission she was independent with ambulation and adls. She does not have any DME in the home. She has a prescription plan. Her daughter has offered for her to stay with her a few days when she goes home. She is not sure she wants to do
that. Medical work-up in progress. The discharge plan is to go to her daughter's home with a home visit by the Transitional Care Nurse verses going back to her own home with a home visit by the Transitional Care Nurse when medically stable.
--- NOTE | 2024-07-02 08:42 | W.CVOR.SURPR ---
CVOR Surgeon Immed Pre Op
-
I have examined this patient prior to performance of the scheduled procedure.
The patient's condition is unchanged from the time of the dictated/written History and
Physical and the patient is able to undergo the scheduled procedure.
R TF TAVR
Full Rescue
[2024-07-02] MEDS: VANCOCIN 200 IV ×2 (08:45→19:34)
[2024-07-02] MEDS: AZACTAM 2000 MG IV (09:17)
[2024-07-02 10:26] LABS: ACT-LR - POC 203 Seconds (116-155)
[2024-07-02 10:38] LABS: ACT-LR - POC 294 Seconds (116-155)
--- NOTE | 2024-07-02 10:58 | ITS.CL.TAVR ---
Literary Writer - TAVR Report
TAVR PRocedure
Procedure Report:
TRANSCATHETER AORTIC VALVE REPLACEMENT REPORT
Date: 07/02/2024
Referring physician: Micheal Mixon D.O.
Preop diagnosis: Severe aortic valve stenosis.
Postop diagnosis: Severe aortic valve stenosis, acute on chronic heart failure with preserved ejection fraction.
Procedure: Aortic valve balloon valvuloplasty using a #18 True balloon, transcatheter aortic valve replacement (TAVR) using a #26 Medtronic CoreValve Evolut Pro FX, TAVR post dilation using a #20 true balloon.
Operators: Christiano Dunlap DO, Farhat Boss M.D.
Findings: Severely calcified and stenotic aortic valve.
Anesthesia: Conscious sedation was provided by the anesthesia staff.
Estimated blood loss: Negligable.
Complications: None.
Condition: Stable
Procedure:
The patient was brought to the cardiac catheter builder after consent and was prepped and draped in standard sterile fashion. Conscious sedation was provided by the anesthesia staff. After a 'Time Out,' bilateral common femoral arteries and the right
common vein were accessed using a modified Seldinger technique with a micropuncture kit under ultrasound guidance. A 6 Maldivian sheath was placed in the right femoral vein. Angiography performed through the micropuncture sheath confirmed
satisfactory arterial placement in the right and left common femoral arteries. The micropuncture sheath was replaced with a 6Fr sheath in the right common femoral artery. In the left common femoral artery, the micropuncture sheath was removed and
an 8 Maldivian dilator was advanced over the wire. The dilator was removed and the left common femoral artery was preclosed with 2 Perc-Close devices. An 8 Maldivian sheath was placed in the left common femoral artery. A temporary pacing wire was
advanced through the right femoral vein and into the right ventricle. The pacemaker demonstrated good capture and was set to back up. A 5Fr pigtail catheter was advanced through the right femoral sheath and seated in the non-coronary cusp. The
valve overlap (JC 20, CAU 20) and three cusp co-planar (MARTIN 25, CAU 12) angles were confirmed on aortography.
An AL-1 catheter was advanced through the 8Fr sheath, the J wire was exchanged for a Lunderquist wire and the catheter and the 8 Fr sheath was removed. A 16 Fr Cook sheath was placed. The CoreValve was prepared on the back table and then inspected
under fluoroscopy. Infolding of the valve was no higher than the 4th node. The AL-1 catheter was advanced over the Lunderquist wire, which was then removed. The catheter was flushed and a straight wire was advanced through the AL-1 catheter. The
straight wire was used to cross the valve, and the AL-1 catheter was prolapsed into the left ventricle. The straight wire was exchanged for an exchange length J-wire and the AL-1 catheter was subsequently exchanged for a 5 Fr angled pigtail
catheter. LVEDP was measured. The double curve Lunderquist wire was advanced through the pigtail catheter and placed in the apex of the left ventricle. The pigtail catheter was removed.
A 18 mm valvuloplasty balloon was advanced over through the Cook sheath and seated at the level of the aortic valve. The patient underwent valvuloplasty under rapid pacing. The valvuloplasty balloon was removed over the Lunderquist wire.
The Cook sheath was removed and the in-line sheath was advanced over the Lunderquist wire through the LCFA into the descending aorta. The Corevalve was then advanced over the aortic arch and into the left ventricle. In the cusp overlap view, the
valve was slowly deployed to the point of flowering. The patient was rapidly paced in a de-escalating rate (from 140 bpm to 80 bpm) as the valve was deployed through the rumble strips to 80%. Injection confirmed a non-coronary cusp implant depth
of 2 mm. The image intensifier was taken to the 3 cusp overlap view to remove paralax. Injection in this view confirmed left coronary cusp implant depth of -1 mm.
The decision was made to partially recapture and redeploy. The valve was recaptured under rapid pacing then slightly advanced and redeployed with a left coronary cusp implant depth of 1 mm. We returned to the cusp overlap position, finding that
there was significant parallax in this position. We removed the parallax from the cusp overlap position and repeated injection, confirming a noncoronary cusp depth of 3 mm.
The decision was made to proceed with full deployment. The delivery handle with slowly rotated counter clockwise until both paddles were released from the superior aspect of the valve. The Lunderquist wire was partially withdrawn to lift the
nosecone of the valve delivery device. The delivery device was withdrawn to the descending aorta and re-assembled. Transthoracic echocardiogram showed moderate paravalvular insufficiency. Mean gradient across the valve was 5 mmHg by echo. There
was some underexpansion of the inflow. Combined with the known calcium in the LVOT, the decision was made to perform post dilation. The inline sheath was removed and the 16 Maldivian Cook sheath was repositioned in the left common femoral artery. A
#20 true balloon was advanced over the Lunderquist wire and into the LVOT. The valve was postdilated and the balloon was withdrawn. Repeat echocardiogram showed modest improvement in the paravalvular leak, remaining moderate. There was concern
for mild disruption of the aorta mitral curtain. There was a small amount of Doppler activity in the area of the base of the mitral valve. The patient remained hemodynamically stable, so the decision was made to allow the valve to reach full
expansion and to avoid further instrumentation.
The Cook sheath was removed over the Lunderquist wire and hemostasis was achieved using the two Perc-Close devices. Lower extremity angiography showed excellent hemostasis and good runoff without evidence perforation or extravasation. The pigtail
catheter was removed over a J-wire and the right PLATFORM MATERIAL HANDLING SUPERVISOR was closed using manual pressure after administration of protamine. There was no evidence of consistent pacing requirement. The temporary pacer was removed. The venous sheath was removed.
Manual pressure was applied with good hemostasis of the right venous access. The patient was taken to recovery in good condition.
Implant Depth
Non-Coronary (mm): 3
Left Coronary (mm): 1
Radiation
Dose (mGy): 343.66
DAP (cm2.Gy): 32.0
Fluoroscopy time (minutes): 11.5
TAVR Echo Gradient (mmHg): 5
LV (s/x, mmHg): 208/30
TAVR Cath Gradient (mmHg): Not obtained.
Conclusions:
1. Successful placement of #26 CoreValve Evolute Pro using a left percutaneous transfemoral approach requiring post deployment BAV using a #20 true balloon with moderate paravalvular leak, possible mild aorto mitral curtain disruption due to LVOT
calcium displacement.
2. Acute on chronic heart failure with elevated filling pressures (LVEDP = 30 mmHg at 57.6 kg).
Christiano Dunlap, DO, FACC, FACP
Copy: Micheal Mixon D.O., Ashley Puga D.O.
--- NOTE | 2024-07-02 11:06 | W.PN.CT.SURG ---
CT Surgery Operative Note
-
OPERATIVE REPORT
Preoperative Diagnosis: Severe aortic valve stenosis, symptomatic
Postoperative Diagnosis: Same
Procedure(s) Performed: Left trans femoral TAVR with a 26mm Medtronic Evolut FX device with pre-BAV (18mm) and post BAV (20mm)
Date of Procedure: 07/02/2024
Comorbidities:
1. Severe symptomatic aortic stenosis
2. Acute on chronic systolic and diastolic congestive heart failure with volume overload, LVEDP pre-TAVR was 30 millimeters of mercury
3. Hypertension
4. Hyperlipidemia
5. Depression/anxiety
6. TIAs
7. Macular degeneration and cataracts
8. Multifactorial anemia
9. CKD stage III 4
10. GI bleeding
11. Osteoarthritis
12. Mild/moderate mitral valve insufficiency
13. Frail
Cardiac Surgeon: Farhat Boss MD, MS
Retail Asset Protection Specialist: Christiano Dunlap MD
Anesthesia: Conscious Sedation, Local
EBL: 100cc
Products: none
Implant: Medtronic Evolut 26mm Evolut FX+ Medtronic SN: [id number]
Indication(s) for Procedures: 83-year-old female with severe aortic stenosis. Symptomatic. CT-TAVR protocol revealed acceptable anatomy for a self-expanding TAVR valve. Given the small size of skull valley annulus, she was set up for an Evolut valve.
Start time: 0955hrs
Deployment time: 1031hrs
End time: 1048hrs
Radiation Dose (mGy): 343.66
DAP (cm2.Gy): 32.9198
Fluoroscopy time (minutes): 11.5
Contrast volume (ml): 88
TAVR gradient (mmHg): 6mmHg
Heparin Dose: 8000units
Protamine Dose: 40mg
Final Valve Positioninmm:1mm (N:L)
Findings: Preoperative LVEF was 60% and was 60% following TAVR without inotropic support. Function was overall normal without regional wall motion abnormalities or dyskinesia. Predeployment balloon valvuloplasty was performed with a 18 mm device
with good effect. Although initially the valve appeared to be well-expanded, there was an area of infolding towards the noncoronary cusp on second review. Due to her baseline CKD and aortogram was not performed. Intraprocedural transthoracic
echocardiogram demonstrated at least moderate paravalvular leak. A postdilatation balloon valvuloplasty was performed with a 20 mm balloon that did not improve the AI and possibly caused some worsening he has a calcium and questionable flow towards
the aorto mitral curtain. Due to the changes post BAV and the fact that we knew she had severe calcification of the LVOT down towards the aorto mitral curtain, both operators felt it was prudent to not instrument again with a larger balloon. At
this time the patient was hemodynamically stable on very low-dose Levophed and did not require pacing postoperative and was in sinus rhythm. Her LVEDP pre-TAVR was 30 mmHg indicating acute on chronic congestive heart failure with volume overload.
Lasix to be given in the CVICU. We will revisit her valve tomorrow with a follow-up transthoracic echocardiogram.
Access:
1. Device -left common femoral artery, perclose x 2
2. Pigtail -right common femoral artery + manual hold
3. Transvenous Pacer -right common femoral vein
Description of Procedure: The patient was taken to the labor employment associate. Their identity and procedure to be performed were verified and they were positioned supine on the labor employment associate table. Induction via conscious sedation with local analgesia. The patient was
then prepped and draped from chin to thigh in a sterile fashion. A preoperative time-out was performed with all members of the team present. Using fluoroscopy, bilateral femoral heads and their margins were identified. Arterial and venous access
were done with a micropuncture needle with Seldinger technique. Test pacing revealed capture with excellent threshold. Angiography confirmed proper puncture site and femoral artery integrity. Two Per-Close devices were used on the TAVR side. An AL1
catheter was used to deliver a extrastiff wire and insertion of the working sheath. An AL1 catheter with a straight stiff wire was used to access the LV. The valve was prepped and mounted on to the device carrier. An ACT of >250 was achieved. We
verified x 3 under fluoroscopy that the valve was mounted correctly with paddles in appropriate position. The stiff wire was then exchanged for pigtail catheter where LVEDP was measured. A Lunderquist wire was then inserted into the LV and a 18 mm
true balloon was then inserted through the sheath and up and across the valve. Under rapid pacing at 180 bpm, predeployment balloon valvuloplasty was performed with good effect. We had rapid recovery of vitals once pacing was stopped. While in
our coplanar view with the pig sitting in the noncoronary cusp we removed the sheath and advanced the device. We advanced the device with it's in-line sheath into the descending thoracic aorta and over the arch into the root and positioned across
the aortic valve. Contrast fluoroscopy was used to visualize the prosthesis across the valve. We performed a quick pre-deployment time out. We verified positioning based on the pigtail and gentle contrast puffs. The valve was slowly deployed to just
before annular contact. We paused here and verified positioning in our cusp overlap view. Initially on that we had good depth on the noncoronary cusp, we felt that the left coronary cusp was quite shallow, and so we had to recapture here 1 time and
then push the device in deeper. We then rotated back towards the overlap view verify that the noncoronary cusp was of appropriate height and then rotated again back AMHARIC after taking the parallax out of the valve to verify the LCC was appropriate
in height. It was and so we slowly continued to deploy the valve until the crowns and paddles were free from the device. At this point the valve was functioning and pacing was stopped. We slowly continued to deploy the valve until the crowns and
paddles were free from the device. The deployment device was withdrawn into the descending thoracic aorta while maintaining wire access across the valve. A transthoracic echocardiogram was performed . As there was a moderate degree of aortic valve
insufficiency, the device was removed from the groin and the initial sheath was reused. We opted for a 20 mm true balloon which was inserted up along the Lunderquist wire and across the valve positioning it in towards the LVOT. Under rapid pacing
the balloon was inflated, after cessation of pacing we had return of vital signs. Follow-up transthoracic echocardiogram intra procedurally demonstrated slightly worsening of the AI with concern for possible disruption of the aorto mitral curtain.
Consensus between both operators was to stop as patient was hemodynamically stable and to reassess tomorrow morning with a follow-up transthoracic echocardiogram. The device was removed from the groin as we cinched down the perclose devices while
maintaining wire access. There was acceptable hemostasis. The pigtail was repositioned into the descending/abdominal and runoff aortogram was performed. There was no significant stenosis or dissection of the bilateral iliofemoral systems with
excellent runoff to the SFAs. All wires were removed and perclose snugged and cut. There was acceptable hemostasis of bilateral groins.
All instrument, sponge, and needle counts were confirmed to be correct x 2 at the end of the operation. The patient was transferred to the cardiac intensive care unit in stable condition.
I, Dr. Farhat Boss, was present, scrubbed for, and performed all critical elements of this procedure.
Farhat Boss MD, MS
Cardiothoracic Surgeon
This operative dictation was created using the [employer] dictation system. Please excuse any grammatical, typographical, or 'sound alike' errors
--- NOTE | 2024-07-02 11:06 | W.PN.UPDATE ---
Update Note
Progress Note Update
Reviewed Ms. Mota with the heart team in the preTAVR SDM meeting and confirmed a 26mm Evolut FX+ via left transfemoral access. Patient will resume aspirin post TAVR. LVEDP 20mmHg. #26mm EvolutFX+ (serial number [id number]) successfully implanted via
left transfemoral access. Post implant MG 5mmHg.
[2024-07-02] MEDS: LEVOPHED 250 IV (11:19)
[2024-07-02] MEDS: AZACTAM IV (11:34)
[2024-07-02] MEDS: LASIX 40 MG IV (11:40)
[2024-07-02 12:06] LABS: Glucose - Point of Care 120 mg/dl (70-99)
--- NOTE | 2024-07-02 15:57 | PTCARENOTE ---
Rec'd pt from wharf laborer. AOX3. Tele- SR. B/l groin sites are c/d/i. Pt has no complaints at this time. Neuro check WNL. Oriented pt to room. Daughter at bedside. Plan of care reviewed w/ pt. Verbalizes understanding. Currently in bed; call lam w/in
reach.
--- NOTE | 2024-07-02 21:18 | PTCARENOTE ---
pt received at change of shift. pt seen and assessed in room. pt. AOx3, but forgetful at times which is pt's baseline. Tele reading NSR with L BBB. pt complains of pain when pushing down on groin sites, 2/, but otherwise no other pain. B/l groins
c/d/i, soft. This RN discussed POC. pt. verbalizes understanding. call fritz within reach. continuing to monitor at this time.
[2024-07-02] MEDS: TYLENOL 650 MG PO (22:21)
[2024-07-03] VITALS (9 sets, daily range): BP systolic 105–124; BP diastolic 54–76; PULSE 95; O2SAT 96–97; BMI 24.0
[2024-07-03 03:06] LABS: Hematocrit 30.2 % (37.0-47.0); Hemoglobin 9.4 g/dL (12.0-16.0); Mean Corp Hgb Conc. 31.1 g/dL (33.0-37.0); Mean Corpuscular Hgb 29.3 pg (27.0-31.0); Mean Corpuscular Volume 94.1 fL (81.0-99.0); Mean Platelet Volume 10.1 fL (7.4-10.4); Platelet Count 209 10^3/uL (130-400); Red Blood Cell Count 3.21 10^6/uL (4.20-5.40); Red Cell Dist. Width 17.6 % (11.5-14.5); White Blood Cell Count 10.1 10^3/uL (4.8-10.8)
[2024-07-03 03:28] LABS: Blood Urea Nitrogen 35 mg/dl (7-17); Calcium 9.2 mg/dl (8.4-10.2); Carbon Dioxide 19 mmol/L (22-30); Chloride 105 mmol/L (98-107); Estimated Creatinine Clearance 24 ml/min; Glucose 91 mg/dl (70-99); Potassium 3.9 mmol/L (3.5-5.1); Sodium 137 mmol/L (135-145)
--- NOTE | 2024-07-03 06:15 | W.PN.CT ---
Today's Communication / Plan
-
-pod #1
-no issues overnight, incisions look good
-nsr 90s-100s with PACs overnight. No ej or pauses
-new LBBB
-Cr stable - 1.3 today (1.4 preop)
-at least moderate paravalvular leak post TAVR. Follow-up Echo today
-current meds (ASA, Lipitor, Effexor)
-encourage IS, OOB
Assessment / Plan
-
- Severe symptomatic - s/p Left trans femoral TAVR with a 26mm Medtronic Evolut FX device with pre-BAV (18mm) and post BAV (20mm) on 07/02/24, pod #1
- Intraop TTE: LVEF preop and postop was 60% without wma. Intraprocedural transthoracic echocardiogram demonstrated at least moderate paravalvular leak. A postdilatation balloon valvuloplasty was performed with a 20 mm
balloon that did not improve the AI and possibly caused some worsening. She has a calcium and questionable flow towards the aorto mitral curtain. Due to the changes post BAV and the fact that we knew she had severe
calcification of the LVOT down towards the aorto mitral curtain, both operators felt it was prudent to not instrument again with a larger balloon.
- Acute on chronic systolic and diastolic congestive heart failure with volume overload, LVEDP pre-TAVR was 30 mmHg. Lasix 40 iv was given post TAVR (UO 900)
- CAD (50-60% prox RCA)
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
- Hypertension
- Hyperlipidemia
- Depression/anxiety
- TIAs
- Macular degeneration and cataracts
- Multifactorial anemia
- CKD stage III
- Hx GI bleeding
- Osteoarthritis
- Mild/moderate mitral valve insufficiency
- Frail
- Non-smoker
- Acute postop LBBB
Discussed patient care with: Nursing and Care Team
Subjective
Procedure
- s/p Left trans femoral TAVR with a 26mm Medtronic Evolut FX device with pre-BAV (18mm) and post BAV (20mm) on 07/02/24
-
Date of Service: July 03, 2024
Objective Data
-
PT 14.5 Sec (11.4-14.6) 06/25/24 12:37
INR 1.08 06/25/24 12:37
APTT 26.0 Sec (23.4-35.0) 06/25/24 12:37
Vital Signs
Vital Signs
Temp Pulse Resp BP Pulse Ox
99.7 F 95 20 135/62 95
07/02/24 22:17 07/02/24 23:15 07/02/24 19:24 07/02/24 22:13 07/02/24 22:17
CT Intake/Output/Weight
07/02/24 07/02/24 07/03/24
06:59 18:59 06:59
Intake Total 1000 / 1200 200 / 1200
Output Total 900 / 900
Balance 100 / 300 200 / 300
SaO2: 95
Physical Exam
-
General: Awake and AOx3
Cardiovascular: Regular rate & rhythm, No Murmurs and No Rub
Respiratory: Decreased Breath Sounds
Incision: Other (groins are cdi, soft, mildly tender with pressure, no hematoma b/l)
Extremities: No Edema
Abdomen: soft, nontender, nondistended, + bowel sounds
Data Reviewed
-
Lab Results: Results Reviewed
Medications: Active Meds Reviewed
Chest X-Ray: Report Reviewed and Image Reviewed
ECG: Report Reviewed and Image Reviewed
--- NOTE | 2024-07-03 07:01 | W.PN.CD ---
Today's Communication / Plan
-
Post TAVR echo pending.
Start aspirin 81 mg daily.
Restart home medications.
Rhythm Star Monitor.
Monitor anemia as an outpatient given addition of aspirin.
Discharge planning.
Impression / Plan
-
Impression/Plan: 83 y/o female with HTN, HLD, CKD4, recurrent GIB without obvious source and severe admitted for elective TAVR.
#Severe
-Chronic, progressive.
-S/P #26 Medtronic Corevalve Evolut FX+ TAVR via left common femoral artery approach.
-Moderate PVL due to two bars of calcium in the LVOT - modestly affected by post BAV but concern for aorto-mitral curtain disruption; no further post BAV.
-EKG shows new LBBB.
-Antithrombotic therapy with aspirin 81 mg daily.
-Echocardiogram pending.
-Rhythm Star Monitor at discharge.
#Anemia
-Chronic, stable.
-Blood levels are generally stable.
-Monitor with addition of aspirin.
-Restart ferrous sulfate, esomeprazole.
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
#HTN
-Chronic, stable.
-Restart home medications.
#HLD
-Chronic, stable.
-Restart atorvastatin 80 mg daily.
#CKD4
-Chronic, stable.
-BUN/Cr are at baseline.
#PPx
-SCD's for DVT/VTE.
-Home PPI for PUD.
#Dispo
-IVU status.
-Full code.
-Potential discharge based on echo.
Subjective/Interval History:
TAVR yesterday.
Moderate PVL, even after post BAV. No further BAV due to concern of aorto-mitral curtain disruption.
LBBB post cath.
No issues overnight.
DATA:
TAVR, 07/02/2024:
Conclusions:
1. Successful placement of #26 CoreValve Evolute Pro using a left percutaneous transfemoral approach requiring post deployment BAV using a #20 true balloon with moderate paravalvular leak, possible mild aorto mitral curtain disruption due to LVOT
calcium displacement.
2. Acute on chronic heart failure with elevated filling pressures (LVEDP = 30 mmHg at 57.6 kg).
Intraprocedural TTE, 07/02/2024:
CONCLUSIONS
Limited intraprocedural study to evaluate TAVR.
Normal left ventricular chamber size and normal left ventricular systolic
function.
Grossly normal right ventricular size and function.
Moderately dilated left atrium.
Normal right atrium.
Well seated #26 Medtronic Evolut transcatheter aortic valve replacement with
moderate aortic regurgitation. There is modest if any difference pre/post
balloon valvuloplasty. Post valvuloplasty, there is Doppler signal near the
aortomitral curtain.
Compared to prior study of 03/26/2024, a #26 Medtronic TAVR valve is now
present. Severe has been relieved but there is now moderate paravalvular
leak.
Physical Exam
Vital Signs/Labs
Vital Signs
Temp Pulse Resp BP Pulse Ox
36.9 C 94 20 120/62 96
07/03/24 02:14 07/03/24 03:00 07/03/24 02:14 07/03/24 02:14 07/03/24 02:14
07/01/24 07/02/24 07/03/24
11:59 11:59 11:59
Actual Weight 57.7 kg 57.5 kg
07/03/24 02:18
07/03/24 02:18
PT 14.5 Sec (11.4-14.6) 06/25/24 12:37
INR 1.08 06/25/24 12:37
APTT 26.0 Sec (23.4-35.0) 06/25/24 12:37
06/25/24
12:37
[id number] Pept 1150
Physical Exam
Constitutional: No acute distress and Comfortable
EENT: Anicteric and Moist mucous membranes
Cardiovascular: Rhythm & rate is regular, Pedal edema is absent, JVD pressure is normal, Diastolic murmur present (1/4 holodiastolic murmur at the left lower sternal border.) and S1S2 is normal
Respiratory: Respiratory effort normal, Lungs clear to auscul., Wheeze Absent, Crackles Absent and Rhonchi Absent
GI: Soft, Distention absent, Flat, Non tender and Normal bowel sounds
Neuro/Psych: AO x 3
Other: Cath Site (Bilateral femoral access sites are C/D/I.)
Data Reviewed
-
Date of Service: July 03, 2024
Medical Decision Making: Reviewed Test Results, Independent Historian Assessment, Test Interpretation and Review of Case with other Provider
EKG: Tracing Personally Visualized and interpreted and Report Reviewed by me
Echo: Tracing Personally Visualized and interpreted and Report Reviewed by me
X-Ray/CT/US/MRI/NUC/PET: Image Personally Visualized and interpreted and Report Reviewed by me
Medical Tests (PFT, Pathology etc): Image Personally Visualized and interpreted, Report Reviewed by me, Discussed with Patient and Discussed with Family
Labs: Labs Reviewed by me
Old Records: Reviewed
--- NOTE | 2024-07-03 07:33 | W.PN.ANS.POP ---
Anesthesia Post Operative
- Anesthesia Post Op Note
Vital Signs Stable-See Nursing Note: Yes
Airway Patent: Yes
Adequate Pain Control: Yes
Change in Mental Status: No
Current Postoperative Nausea & Vomiting: No
Anesthesia Complications: No
General Anesthetic Recall: No
Unplanned Admission: No
Post Op Hydration Adequate: Yes
--- NOTE | 2024-07-03 09:54 | W.DCSUMMARY ---
Documented by User: [email or web address] 07/03/24 13:38
Discharge Summary
Discharge Data
Date of Admission: 07/02/24
Date of Discharge: 07/03/24
Total time spent discharging patient (in min): 35
-
Pending Results: No
Hospital Course
Primary care physician:
Dr. Andres
Outpatient maintenance pipefitter:
Dr. Mixon
Inpatient consultants:
CBC
Procedures:
1. Left trans femoral TAVR with a 26mm Medtronic Evolut FX device with pre-BAV (18mm) and post BAV (20mm)
Primary Diagnosis:
1. Severe aortic stenosis
Secondary Diagnoses:
1. Mild/moderate mitral valve insufficiency
2. Acute on chronic systolic and diastolic congestive heart failure with volume overload, LVEDP pre-TAVR was 30 millimeters of mercury
3. Hypertension
4. Hyperlipidemia
5. Depression/anxiety
6. TIAs
7. Macular degeneration and cataracts
8. Multifactorial anemia
9. CKD stage III 4
10. GI bleeding
11. Osteoarthritis
HPI: 83-year-old female seen in the office by CT surgery presented electively on 07/02 for a transcatheter aortic valve replacement with Dr. Boss.
Hospital course: Patient was electively admitted on 07/03 for a transcatheter aortic valve replacement with Dr. Boss. After a successful valve implantation and patient went to cath lab radiology technician recovery. Her postoperative EKG did show a new left bundle
branch block however she did not have significant bradycardia or pauses. She was temporarily on Levophed for blood pressure management. B/l groins remain stable. She was sent to IVU for the remainder of their recovery. On 07/03 POD #1, B/L groins
remained stable. Repeat TTE showed a peak/mean gradient of . She was deemed stable for discharge to stay with her daughter.
Home medication changes:
See below
Discharge Plan
-
Patient Disposition: Home (Routine Discharge)
Discharge Diagnosis/Procedures: TF TAVR
Condition: Fair
Diet: 2 Gram Sodium
Driving Restrictions: No driving for 1 week
Bathing Restrictions: OK to Shower
Other Services: Cardiac Rehab
Specialty Instructions: Weigh Daily- Call MD for wt gain/loss 3 lbs overnight/5 lbs in 1 week
Activity Restrictions/Additional Instructions:
Please call [facility] Cardiac Rehab Phase 2 program at [phone] to schedule your first visit upon DC to home if you are able to get consistent rides there 2-3 days per week.
Referrals:
CT Transitional Care Nurse [Outside] - in one to two days
(
The Cardiothoracic Transitional Care Nurse will call you to set up a visit in 1-2 days.)
Micheal Mixon DO [Non-Admitting Privileges] - 08/03/24 9:40 am
ALEXANDRA BORGES DO [Family Provider] - in four to six weeks (Please make an appointment in four to six weeks. )
Prescriptions:
New
acetaminophen 325 mg Tablet
650 mg PO Q4HPRN PRN (Reason: PURDY, mild pain, or fever >101F) Qty: 0 0RF
aspirin 81 mg Tablet,Chewable
81 mg PO DAILY Qty: 1 0RF
Continued
atorvastatin 80 mg Tablet
80 mg PO DAILY
venlafaxine 75 mg Tablet
150 mg PO DAILY
cholecalciferol (vitamin D3) [Vitamin D3] 125 mcg (5,000 unit) Tablet
125 mcg PO DAILY
biotin 1,000 mcg Tablet,Chewable
1,000 mcg PO DAILY
esomeprazole magnesium [Nexium 24HR] 20 mg Tablet,Delayed Release (Dr/Ec)
20 mg PO DAILY
ferrous sulfate [Iron (ferrous sulfate)] 325 mg (65 mg iron) Tablet
325 mg PO DAILY
potassium 99 mg Tablet
99 mg PO DAILY
PreserVision AREDS-2 250-90-40-1 mg Capsule
2 tab PO DAILY
ascorbic acid (vitamin C) 500 mg Capsule, Extended Release
500 mg PO DAILY
magnesium 20 mg
20 mg PO DAILY
Care Plan Goals
Care Plan Goals:
Problem: Readiness for enhanced knowledge related to diagnosis and treatment plan
Goal: Understand your diagnosis and treatment plan needs, including medications if applicable.
Instructions: Know your diagnosis, underlying causes and treatment plan options, including medications if applicable. Consult with your health care team to learn about your diagnosis and treatment plan, including medications if applicable.
Discharge Date and Time
Print Language: TURKMEN

Documented by User: [email or web address] Taylor 07/03/24 13:36
Discharge Summary
Discharge Data
Date of Admission: 07/02/24
Date of Discharge: 07/03/24
Hospital Course
Primary care physician:
Dr. Andres
Outpatient maintenance pipefitter:
Dr. Mixon
Inpatient consultants:
CBC
Procedures:
1. Left trans femoral TAVR with a 26mm Medtronic Evolut FX device with pre-BAV (18mm) and post BAV (20mm)
Primary Diagnosis:
1. Severe aortic stenosis
Secondary Diagnoses:
1. Mild/moderate mitral valve insufficiency
2. Acute on chronic systolic and diastolic congestive heart failure with volume overload, LVEDP pre-TAVR was 30 millimeters of mercury
3. Hypertension
4. Hyperlipidemia
5. Depression/anxiety
6. TIAs
7. Macular degeneration and cataracts
8. Multifactorial anemia
9. CKD stage III 4
10. GI bleeding
11. Osteoarthritis
HPI: 83-year-old female seen in the office by CT surgery presented electively on 07/02 for a transcatheter aortic valve replacement with Dr. Boss.
Hospital course: Patient was electively admitted on 07/03 for a transcatheter aortic valve replacement with Dr. Boss. After a successful valve implantation and patient went to cath lab radiology technician recovery. Her postoperative EKG did show a new left bundle
branch block however she did not have significant bradycardia or pauses. She was temporarily on Levophed for blood pressure management. B/l groins remain stable. She was sent to IVU for the remainder of their recovery. On 07/03 POD #1, B/L groins
remained stable. Repeat TTE reported an EF of 55-60% with AV peak/mean gradient of 15/8mmHg and moderate paravalvular AI and mild-moderate TR (unchanged form prior). She was deemed stable for discharge to stay with her daughter.
Home medication changes:
See below
Discharge Plan
-
Patient Disposition: Home (Routine Discharge)
Discharge Diagnosis/Procedures: TF TAVR
Condition: Fair
Diet: 2 Gram Sodium
Driving Restrictions: No driving for 1 week
Bathing Restrictions: OK to Shower
Other Services: Cardiac Rehab
Specialty Instructions: Weigh Daily- Call MD for wt gain/loss 3 lbs overnight/5 lbs in 1 week
Activity Restrictions/Additional Instructions:
Please call [facility] Cardiac Rehab Phase 2 program at [phone] to schedule your first visit upon DC to home if you are able to get consistent rides there 2-3 days per week.
Referrals:
CT Transitional Care Nurse [Outside] - in one to two days
(
The Cardiothoracic Transitional Care Nurse will call you to set up a visit in 1-2 days.)
Micheal Mixon DO [Non-Admitting Privileges] - 08/03/24 9:40 am
ALEXANDRA BORGES DO [Family Provider] - in four to six weeks (Please make an appointment in four to six weeks. )
Prescriptions:
New
acetaminophen 325 mg Tablet
650 mg PO Q4HPRN PRN (Reason: PURDY, mild pain, or fever >101F) Qty: 0 0RF
aspirin 81 mg Tablet,Chewable
81 mg PO DAILY Qty: 1 0RF
Continued
atorvastatin 80 mg Tablet
80 mg PO DAILY
venlafaxine 75 mg Tablet
150 mg PO DAILY
cholecalciferol (vitamin D3) [Vitamin D3] 125 mcg (5,000 unit) Tablet
125 mcg PO DAILY
biotin 1,000 mcg Tablet,Chewable
1,000 mcg PO DAILY
esomeprazole magnesium [Nexium 24HR] 20 mg Tablet,Delayed Release (Dr/Ec)
20 mg PO DAILY
ferrous sulfate [Iron (ferrous sulfate)] 325 mg (65 mg iron) Tablet
325 mg PO DAILY
potassium 99 mg Tablet
99 mg PO DAILY
PreserVision AREDS-2 250-90-40-1 mg Capsule
2 tab PO DAILY
ascorbic acid (vitamin C) 500 mg Capsule, Extended Release
500 mg PO DAILY
magnesium 20 mg
20 mg PO DAILY
Care Plan Goals
Care Plan Goals:
Problem: Readiness for enhanced knowledge related to diagnosis and treatment plan
Goal: Understand your diagnosis and treatment plan needs, including medications if applicable.
Instructions: Know your diagnosis, underlying causes and treatment plan options, including medications if applicable. Consult with your health care team to learn about your diagnosis and treatment plan, including medications if applicable.
Discharge Date and Time
Print Language: TURKMEN
[2024-07-03] MEDS: EFFEXOR 150 MG PO (11:02)
[2024-07-03] MEDS: VITAMIN C 500 MG PO (11:03)
[2024-07-03] MEDS: LOW STRENGTH ASPIRIN 81 MG PO (11:03)
[2024-07-03] MEDS: LIPITOR 80 MG PO (11:03)
--- NOTE | 2024-07-03 11:38 | PTCARENOTE ---
Discussed the use and purpose of the starlink monitor on discharge. Encouraged questions. Will monitor.
--- NOTE | 2024-07-03 11:51 | CM ---
Chart reviewed. Patient is independent of ADLS, lives alone in a split level home, [address], 0 [address]. Patient will be going to her daughters house, [address], [place] [id number], [place] [phone]. Plan is for the patient to return home with
CT Transitional RN. CM to follow
--- NOTE | 2024-07-03 13:15 | PTCARENOTE ---
Pt noted to have a 12 beat run of atrial tachycardia. Pt asymptomatic of the event. Will monitor.
--- NOTE | 2024-07-03 14:17 | W.PN.UPDATE ---
Update Note
Progress Note Update
Dr. Dunlap requests Rhythm Star monitor to be placed at discharge. Monitor given to patient. Reviewed with patient how to apply, charge, report symptoms and return the device after 14 days. Allowed for and answered questions. Patient verbalized
understanding. Went over monitor with RN and she will review with daughter prior to discharge.
== END 2024-07-03 17:01 | disposition home or self-care (01) | DRG 266 ==
LOC: IVU 07:47
PROVIDERS: Physician Assistant Medical; ADMITTING PHYSICIAN Thoracic Surgery (Cardiothoracic Vascular Surgery); CONSULT PHYSICIAN Internal Medicine Cardiovascular Disease; FAMILY PHYSICIAN Student in an Organized Health Care Education/Training Program; OTHER PHYSICIAN Internal Medicine Cardiovascular Disease
PROC: 02RF38Z Replacement of Aortic Valve with Zooplastic Tissue, Percutaneous Approach (ICD-10-PCS; 2024-07-02)
DX: I35.0 Nonrheumatic aortic (valve) stenosis (principal); I50.43 Acute on chronic combined systolic (congestive) and diastolic (congestive) heart failure; I13.0 Hypertensive heart and chronic kidney disease with heart failure and stage 1 through stage 4 chronic kidney disease, or unspecified chronic kidney disease; N18.4 Chronic kidney disease, stage 4 (severe); I70.201 Unspecified atherosclerosis of native arteries of extremities, right leg; E11.51 Type 2 diabetes mellitus with diabetic peripheral angiopathy without gangrene; I25.10 Atherosclerotic heart disease of native coronary artery without angina pectoris; F32.A Depression, unspecified; F41.9 Anxiety disorder, unspecified; E11.22 Type 2 diabetes mellitus with diabetic chronic kidney disease; D63.1 Anemia in chronic kidney disease; E78.5 Hyperlipidemia, unspecified; I27.29 Other secondary pulmonary hypertension; H35.30 Unspecified macular degeneration; E11.36 Type 2 diabetes mellitus with diabetic cataract; K44.9 Diaphragmatic hernia without obstruction or gangrene; I44.7 Left bundle-branch block, unspecified; M19.90 Unspecified osteoarthritis, unspecified site; I34.0 Nonrheumatic mitral (valve) insufficiency; Z79.82 Long term (current) use of aspirin; Z79.899 Other long term (current) drug therapy; Z86.73 Personal history of transient ischemic attack (TIA), and cerebral infarction without residual deficits
CPT/HCPCS: 93308; 33361; 36415; 71045; 71046; 80048; 80053; 81003; 81015; 82248; 82962; 83036; 83880; 85025; 85027; 85347; 85610; 85730; 86850; 86900; 86901; 87070; 87086; 93005; 93321; 93325; C1760; C1769; C1894; Q9967